=== PATIENT | female | born 2000 | race Caucasian/White ===

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

== ENCOUNTER 2020-12-17 14:00 | Outpatient (CLI) | payer OTHER ==
[~2020-12-17 14:00] MED LIST changes: +ANALPRAM HC 2.530 GM RECTAL; +DOLOGEN CAPLET1 EACH PO
[2020-12-17] MEDS ORDERED: PRENATAL TABLE1 EAC1 PO (14:18)
== END 2020-12-18 10:54 | disposition home or self-care (01) ==
LOC: OBS/DEL 14:00
PROVIDERS: ATTEND Specialist
DX: O21.8 Other vomiting complicating pregnancy (principal); Z3A.32 32 weeks gestation of pregnancy; Z20.822 Contact with and (suspected) exposure to COVID-19

== ENCOUNTER 2021-01-29 22:45 | Outpatient (CLI) | payer OTHER ==
[~2021-01-29 22:45] MED LIST changes: +PRENATAL TABLE1 EAC1 PO
[2021-01-29] MEDS ORDERED: DIALYVITE 800-1 EACH PO (23:11)
== END 2021-01-30 11:01 | disposition home or self-care (01) ==
LOC: OBS/DEL 22:45
PROVIDERS: ATTEND Specialist
DX: O47.1 False labor at or after 37 completed weeks of gestation (principal); Z3A.38 38 weeks gestation of pregnancy

== ENCOUNTER 2021-02-03 11:15 | Inpatient (IN) | payer OTHER ==
[~2021-02-03] VITALS: Ht 162.6 cm; Wt 101.6 kg
[~2021-02-03 11:15] MED LIST changes: +DIALYVITE 800-1 EACH PO
[2021-02-03] MEDS ORDERED: BAYER CHILDREN'81 MG PO (11:57)
[2021-02-06] MEDS ORDERED: FOLIC ACID1 MG (08:35)
== END 2021-02-07 11:59 | disposition home or self-care (01) | DRG 788 ==
LOC: OBS/DEL 11:15 → OB/GYN 12:46 → OBS/DEL 12:46 → LDR 12:46 → OB/GYN 02-04 13:55
PROVIDERS: ADMIT Specialist; ATTEND Specialist
PROC: 3E0P7VZ Introduction of Hormone into Female Reproductive, Via Natural or Artificial Opening (ICD-10-PCS; 2021-02-03)
PROC: 4A1HXFZ Monitoring of Products of Conception, Cardiac Rhythm, External Approach (ICD-10-PCS; 2021-02-03)
PROC: 10D00Z1 Extraction of Products of Conception, Low, Open Approach (ICD-10-PCS; principal; 2021-02-04 12:00)
DX: O65.8 Obstructed labor due to other maternal pelvic abnormalities (principal); O13.4 Gestational [pregnancy-induced] hypertension without significant proteinuria, complicating childbirth; Z3A.39 39 weeks gestation of pregnancy; Z37.0 Single live birth; Z20.822 Contact with and (suspected) exposure to COVID-19

== ENCOUNTER 2021-03-06 14:43 | Emergency (ER) | payer OTHER ==
[~2021-03-06] VITALS: Ht 162.6 cm; Wt 91.2 kg
[~2021-03-06 14:43] MED LIST changes: +BAYER CHILDREN'81 MG PO; +FOLIC ACID1 MG
== END 2021-03-06 21:19 | disposition home or self-care (01) ==
LOC: ER 14:43
DX: K64.4 Residual hemorrhoidal skin tags (principal); K62.5 Hemorrhage of anus and rectum

== ENCOUNTER 2021-12-26 13:59 | Emergency (ER) | payer OTHER ==
[~2021-12-26] VITALS: Ht 162.6 cm; Wt 99.8 kg
== END 2021-12-26 17:01 | disposition home or self-care (01) ==
LOC: ER 13:59
DX: B34.9 Viral infection, unspecified (principal)